=== PATIENT | female | born 1950 | race Caucasian/White ===

== ENCOUNTER → 2018-10-19 13:25 | Outpatient (CLI) | payer MEDICARE, BC, SELFPAY ==
--- NOTE | 2018-10-19 13:28 | DI.RAD.S_ITS ---
PROCEDURE: XR WRIST RT MIN 3V INDICATIONS: Right Wrist pain TECHNIQUE: 4 views of the wrist were acquired. COMPARISON: None. FINDINGS: Bones: No fractures or dislocations. No suspicious bony lesions. Scaphoid view: Scaphoid appears intact. Soft tissues: No suspicious soft tissue calcifications. IMPRESSION: No fracture or dislocation. If clinical symptoms persist or clinical suspicion for pathology is high, advanced imaging such as CT or MRI is suggested for further evaluation. Dictated by: Jennifer Polanco M.D. on 10/19/2018 at 14:38 Approved by: Jennifer Polanco M.D. on 10/19/2018 at 14:40
== END ==
PROVIDERS: Family Provider Family Medicine; PCP Family Medicine; Visit Provider Physician Assistant
DX: M25.531 Pain in right wrist (principal)
CPT/HCPCS: 73110

== ENCOUNTER → 2019-06-16 08:50 | Outpatient (CLI) | payer MEDICARE, BC, SELFPAY ==
[2019-06-16 09:53] LABS: Alanine Aminotransferase 13 IU/L (<35); Albumin 4.4 g/dL (3.5-5.0); Albumin Globulin Ratio 1.5 (1.0-2.8); Alkaline Phosphatase 56 U/L (38-126); Aspartate Aminotransferase 30 IU/L (14-36); Bilirubin Total 0.4 mg/dL (0.2-1.3); Blood Urea Nitrogen 18 mg/dL (7-17); Calcium 9.7 mg/dL (8.4-10.2); Carbon Dioxide 29 mmol/L (22-32); Chloride 102 mmol/L (98-107); Cholesterol 231 mg/dL (140-199); Estimated Glomerular Filt Rate > 60.0 mL/min (>60); Glucose 96 mg/dL (80-110); HDL Cholesterol 71 mg/dL (40-60); HEMOLYSIS < 15 (0-50); LDL Cholesterol Calculated 151 mg/dL (<100); Potassium 4.2 mmol/L (3.4-5.1); Sodium 139 mmol/L (137-145); Total Protein 7.4 g/dL (6.3-8.2); Triglycerides 47 mg/dL (35-150)
[2019-06-16 09:55] LABS: Add Manual Diff / Slide Review NO; Basophils Absolute Auto 0 /uL (0-100); Basophils Percent Auto 1.3 % (0-2); Eosinophils Absolute Auto 200 /uL (0-450); Eosinophils Percent Auto 5.1 % (2-4); Hematocrit 37.8 % (36-46); Hemoglobin 12.8 g/dL (12.0-16.0); Lymphocytes Absolute Auto 1600 /uL (1100-4500); Lymphocytes Percent Auto 44.2 % (25-40); Mean Corpuscular HGB Conc 33.8 % (30-36); Mean Corpuscular Hemoglobin 29.2 PG (26-34); Mean Corpuscular Volume 86.5 fL (80-100); Monocytes Absolute Auto 300 /uL (0-900); Monocytes Percent Auto 8.8 % (3-14); Neutrophils Absolute Auto 1500 /uL (1500-7000); Neutrophils Percent Auto 40.6 % (50-75); Platelet Count 252 X10^3/uL (150-400); Red Blood Cell Count 4.37 X10^6/uL (4.0-5.2); Red Cell Distribution Width 13.7 % (11.6-14.8); White Blood Cell Count 3.6 X10^3/uL (4.5-11.0)
== END ==
PROVIDERS: PCP Family Medicine; Visit Provider Family Medicine
DX: Z00.00 Encounter for general adult medical examination without abnormal findings (principal); Z13.220 Encounter for screening for lipoid disorders; D70.9 Neutropenia, unspecified; E87.1 Hypo-osmolality and hyponatremia; R03.0 Elevated blood-pressure reading, without diagnosis of hypertension
CPT/HCPCS: 36415; 80053; 80061; 85025

== ENCOUNTER → 2019-07-18 11:50 | Outpatient (CLI) | payer MEDICARE, BC, SELFPAY ==
--- NOTE | 2019-07-18 11:51 | DI.MG.S_ITS ---
BILATERAL DIGITAL SCREENING MAMMOGRAM 3D/2D WITH CAD: 07/18/2019 CLINICAL: Routine screening. Family history of breast cancer. Comparison is made to exams dated: 06/12/2016 mammogram - [facility], 10/13/2011 mammogram, and 04/02/2009 mammogram - [facility]. The tissue of both breasts is heterogeneously dense. This may lower the sensitivity of mammography. Current study was also evaluated with a Computer Aided Detection (CAD) system. No significant masses, calcifications, or other findings are seen in either breast. There has been no significant interval change. IMPRESSION: NEGATIVE There is no mammographic evidence of malignancy. A 1 year screening mammogram is recommended. This exam was interpreted at Station ID: [id number]. NOTE: For mammograms, a report in lay terms will be sent to the patient. Approximately 15% of breast malignancies will not be visualized mammographically. In the management of a palpable breast mass, a negative mammogram must not discourage biopsy of a clinically suspicious lesion. Electronically Signed By: Venus sewell/jose:07/18/2019 13:23:59 letter sent: Normal Exam ACR BI-RADS Category 1: Negative 3341F
== END ==
PROVIDERS: PCP Family Medicine; Visit Provider Family Medicine
DX: Z12.31 Encounter for screening mammogram for malignant neoplasm of breast (principal); Z80.3 Family history of malignant neoplasm of breast; M81.0 Age-related osteoporosis without current pathological fracture; Z78.0 Asymptomatic menopausal state; Z87.39 Personal history of other diseases of the musculoskeletal system and connective tissue
CPT/HCPCS: 77063; 77067; 77080

== ENCOUNTER → 2020-08-24 14:07 | Outpatient (CLI) | payer MEDICARE, BC, SELFPAY ==
[2020-08-24] MEDS: COVID-19 VACC #1, MRNA(MOD) 100 MCG/0.5 ML VIAL IM (14:20)
== END ==
PROVIDERS: PCP Family Medicine; Visit Provider Internal Medicine
DX: Z23 Encounter for immunization (principal)
CPT/HCPCS: 0011A; 91301

== ENCOUNTER → 2020-09-21 14:25 | Outpatient (CLI) | payer MEDICARE, BC, SELFPAY ==
[2020-09-21] MEDS: COVID-19 VACC #2, MRNA(MOD) 100 MCG/0.5 ML VIAL IM (14:31)
== END ==
PROVIDERS: PCP Family Medicine; Visit Provider Internal Medicine
DX: Z23 Encounter for immunization (principal)
CPT/HCPCS: 0012A; 91301

== ENCOUNTER 2020-12-29 19:04 | Emergency (ER) | payer MEDICARE, BC, SELFPAY ==
[2020-12-29] VITALS (21 sets, daily range): BP systolic 156–213; BP diastolic 79–107; PULSE 64–83; RESP 13–35; TEMP 36.6; O2SAT 96–99; BMI 20.1
[2020-12-29 19:43] LABS: Add Manual Diff / Slide Review NO; Basophils Absolute Auto 100 /uL (0-100); Basophils Percent Auto 1.2 % (0-2); Eosinophils Absolute Auto 100 /uL (0-450); Eosinophils Percent Auto 1.6 % (2-4); Hematocrit 36.9 % (36-46); Hemoglobin 12.3 g/dL (12.0-16.0); Lymphocytes Absolute Auto 2000 /uL (1100-4500); Mean Corpuscular HGB Conc 33.3 % (30-36); Mean Corpuscular Hemoglobin 28.8 PG (26-34); Mean Corpuscular Volume 86.6 fL (80-100); Monocytes Absolute Auto 500 /uL (0-900); Monocytes Percent Auto 8.9 % (3-14); Neutrophils Absolute Auto 3400 /uL (1500-7000); Neutrophils Percent Auto 56.3 % (50-75); Platelet Count 262 X10^3/uL (150-400); Red Blood Cell Count 4.26 X10^6/uL (4.0-5.2); Red Cell Distribution Width 13.1 % (11.6-14.8); White Blood Cell Count 6.1 X10^3/uL (4.5-11.0)
[2020-12-29 20:04] LABS: Alanine Aminotransferase 15 IU/L (<35); Albumin 4.4 g/dL (3.5-5.0); Albumin Globulin Ratio 1.3 (1.0-2.8); Alkaline Phosphatase 61 U/L (38-126); Aspartate Aminotransferase 31 IU/L (14-36); BUN Creatinine Ratio 28.4 (6-22); Bilirubin Total 0.3 mg/dL (0.2-1.3); Blood Urea Nitrogen 19 mg/dL (7-17); Calcium 9.7 mg/dL (8.4-10.2); Carbon Dioxide 23 mmol/L (22-32); Chloride 98 mmol/L (98-107); Estimated Glomerular Filt Rate > 60.0 mL/min (>60); Globulin 3.3 g/dL (1.7-4.1); Glucose 120 mg/dL (80-110); HEMOLYSIS 21 (0-50); Sodium 129 mmol/L (137-145); Total Protein 7.7 g/dL (6.3-8.2)
--- NOTE | 2020-12-29 20:12 | ED_ITS ---
HPI - General Adult General Chief complaint: Hypertension Stated complaint: HIGH BLOOD PRESSURE Time Seen by Provider: 12/29/20 19:58 Source: patient and family Mode of arrival: Ambulatory Limitations: no limitations History of Present Illness HPI narrative: Patient here with . Evaluation for high blood pressure. Seen by primary care Dr. Inge Urban 2 years ago blood pressure 130 systolic. Has history of hypercholesteremia. A month ago was at dentist's office blood pressure 150 systolic. Patient at dermatology office today and [place] and noted blood pressure ranging between 170-200 systolic foot. Patient denies denies any chest pain headache numbness tingling or weakness. No nausea vomiting or vision changes. Currently not on any blood pressure medication. Patient was referred to family doctor office today from the dermatology office. However the primary office and unable to see patient today. Has appointment tomorrow. Blood pressure noted here in triage as well as in her room. Has improved. Denies any recent illness Related Data Home Medications Medication Instructions Recorded Confirmed [probiotic] #0 01/29/17 06/12/19 cholecalciferol (vitamin D3) 2,500 unit PO #0 01/29/17 06/12/19 [Vitamin D3] hydrocortisone [Ala-Malcom] 1 beverly TP #0 01/29/17 06/12/19 hydrocortisone [Proctozone-HC] [address] #0 01/29/17 06/12/19 ibuprofen [Advil Liqui-Gel] 200 mg PO #0 01/29/17 06/12/19 multivitamin [Multiple Vitamins] 1 tab PO QDAY #0 01/29/17 06/12/19 omega 2-ecu-nsw-fish oil [Fish Oil] 1,000 mg PO #0 01/29/17 06/12/19 Previous Rx's Medication Instructions Recorded lisinopril 5 mg PO DAILY #14 tab 12/29/20 Allergies Allergy/AdvReac Type Severity Reaction Status Date / Time No Known Drug Allergies Allergy Verified 12/29/20 19:05 Review of Systems Review of Systems Narrative: GENERAL: Denies chills, fatigue, malaise, fever, sweats. HEENT: Denies sinus pain, ear pain, sore throat RESPIRATORY: Denies dyspnea, cough CARDIOVASCULAR: Denies chest pain, palpitations GASTROINTESTINAL: Denies nausea, vomiting, abdominal pain : Denies dysuria, frequency, hematuria MUSCULOSKELETAL: denies muscle or bony pain SKIN: Denies rash, skin lesions NEUROLOGIC: Denies weakness, numbness ROS Unobtainable: All systems reviewed & are unremarkable except as noted in HPI and below Patient History Medical History (Updated 12/29/20 @ 20:15 by Ronaldo Huber MD) Osteoporosis Surgical History Status post ovarian cystectomy Social History Smoking Status: Unknown if ever smoked alcohol intake: current substance use type: does not use Smoking Status: Unknown if ever smoked alcohol intake frequency: a few times a week Substance Use Type: does not use Exam Narrative Exam Narrative: GENERAL: in no distress, not toxic not dyspneic HEAD: Normocephalic. EYES: Pupils equal round No scleral icterus. No injection no discharge ENT: Mucous membranes moist. NECK: Trachea midline. CARDIOVASCULAR: Regular rate and rhythm without murmurs RESPIRATORY: Clear to auscultation. Breath sounds equal bilaterally. No wheezes, rales, or rhonchi. GASTROINTESTINAL: Abdomen soft, non-tender EXTREMITIES: No gross deformities. BACK: No flank tenderness. NEURO: AOx4. SKIN: Warm and dry PSYCH: Not anxious, is cooperative Initial Vital Signs Initial Vital Signs: Vital Signs Temperature 97.9 F 12/29/20 19:04 Pulse Rate 83 12/29/20 19:04 Respiratory Rate 15 12/29/20 19:04 Blood Pressure 204/93 H 12/29/20 19:04 Pulse Oximetry 98 12/29/20 19:04 Course Course Course Narrative: No new issues during course of stay Orders Ordered: ED Orders 12/29/20 19:22 EKG-12 Lead Stat 12/29/20 19:36 Complete Blood Count AUTO DIFF Stat Comprehensive Metabolic Panel Stat Troponin & CK Cardiac Panel Stat Discontinued Medications Lisinopril (Lisinopril 5 Mg Tablet) 5 mg PO NOW ONE Stop: 12/29/20 20:29 Last Admin: 12/29/20 20:52 Dose: 5 mg Documented by: LEONARDA Lisinopril (Lisinopril 5 Mg Tablet) 5 mg PO NOW ONE Stop: 12/29/20 21:51 Last Admin: 12/29/20 21:59 Dose: 5 mg Documented by: LEONARDA Lisinopril (Lisinopril 5 Mg Tablet) 5 mg PO NOW ONE Stop: 12/29/20 22:00 Last Admin: 12/29/20 22:02 Dose: Not Given Documented by: LEONARDA Reevaluation(s) Reevaluation #1: Blood pressure 158/83 heart rate 75. Continues no complaints. She desires discharge home Time: 22:47 Consultations Consultation #1: Spoke with primary care button maker and installer, Dr. Cano, advises start lisinopril 5 mg daily. Time: 20:29 Vital Signs Vital signs: Vital Signs - 8 hr 12/29/20 19:41 12/29/20 19:42 12/29/20 19:45 Pulse Rate 79 77 73 Respiratory Rate 26 H 22 24 Blood Pressure 197/95 H 191/97 H Pulse Oximetry 97 98 97 12/29/20 20:00 12/29/20 20:15 12/29/20 20:30 Pulse Rate 68 70 66 Respiratory Rate 15 26 H 19 Blood Pressure 173/87 H 185/95 H 173/92 H Pulse Oximetry 97 97 97 12/29/20 20:45 12/29/20 20:52 12/29/20 21:00 Pulse Rate 65 65 64 Respiratory Rate 23 30 H Blood Pressure 156/79 H 156/79 H 203/93 H Pulse Oximetry 97 98 12/29/20 21:02 12/29/20 21:04 12/29/20 21:05 Pulse Rate 76 74 72 Respiratory Rate 30 H 24 35 H Blood Pressure 207/106 H 213/107 H 207/100 H Pulse Oximetry 98 98 98 12/29/20 21:15 12/29/20 21:30 12/29/20 21:45 Pulse Rate 70 70 75 Respiratory Rate 22 17 17 Blood Pressure 197/97 H 192/99 H 187/96 H Pulse Oximetry 98 97 97 12/29/20 21:59 12/29/20 22:00 12/29/20 22:15 Pulse Rate 74 76 70 Respiratory Rate 28 H 13 Blood Pressure 187/96 H 188/96 H 166/85 H Pulse Oximetry 99 98 12/29/20 22:30 12/29/20 22:45 Pulse Rate 72 74 Respiratory Rate 13 28 H Blood Pressure 162/79 H 158/83 H Pulse Oximetry 97 96 Medical Decision Making Differential Diagnosis Differential Diagnosis: Essential hypertension, incidental finding Medical Records Medical records reviewed: Yes I reviewed the patient's medical records. Lab Data Lab results reviewed: Yes I reviewed the patient's lab results. Result diagrams: 12/29/20 19:36 12/29/20 19:36 Labs: Lab Results 12/29/20 12/29/20 12/29/20 Range/Units 19:36 19:36 19:36 WBC 6.1 (4.5-11.0) X10^3/uL RBC 4.26 (4.0-5.2) X10^6/uL Hgb 12.3 (12.0-16.0) g/dL Hct 36.9 (36-46) % MCV 86.6 (80-100) fL MCH 28.8 (26-34) PG MCHC 33.3 (30-36) % RDW 13.1 (11.6-14.8) % Plt Count 262 (150-400) X10^3/uL Neut % (Auto) 56.3 (50-75) % Lymph % (Auto) 32.0 (25-40) % [place] % (Auto) 8.9 (3-14) % Eos % (Auto) 1.6 L (2-4) % Baso % (Auto) 1.2 (0-2) % Neut # (Auto) 3400 (5048-5238) /uL Lymph # (Auto) 2000 (9711-5696) /uL [place] # (Auto) 500 (0-900) /uL Eos # (Auto) 100 (0-450) /uL Baso # (Auto) 100 (0-100) /uL Sodium 129 L (137-145) mmol/L Potassium 4.0 (3.4-5.1) mmol/L Chloride 98 (98-107) mmol/L Carbon Dioxide 23 (22-32) mmol/L BUN 19 H (7-17) mg/dL Creatinine 0.67 (0.52-1.04) mg/dL Estimated GFR > 60.0 (>60) mL/min BUN/Creatinine Ratio 28.4 H (6-22) Glucose 120 H (80-110) mg/dL Calcium 9.7 (8.4-10.2) mg/dL Total Bilirubin 0.3 (0.2-1.3) mg/dL AST 31 (14-36) IU/L ALT 15 (<35) IU/L Alkaline Phosphatase 61 (38-126) U/L Total Creatine Kinase 70 (30-135) U/L CK-MB (CK-2) TNP CK-MB (CK-2) Rel Index TNP Troponin I 0.029 (0.01-0.034) ng/mL Total Protein 7.7 (6.3-8.2) g/dL Albumin 4.4 (3.5-5.0) g/dL Globulin 3.3 (1.7-4.1) g/dL Albumin/Globulin Ratio 1.3 (1.0-2.8) ECG Data Attestation: I personally reviewed and interpreted this ECG as follows: Interpretation: Normal sinus rhythm rate [address] elevation or depression MDM Narrative Medical decision making narrative: Appropriate for discharge home. Exam and laboratory studies reassuring. Has follow-up with primary care tomorrow. Blood pressure improved with lisinopril. Discharge Plan Departure Patient Disposition: Home Clinical Impression: Hypertension Qualifiers: Hypertension type: unspecified Qualified Code(s): I10 - Essential (primary) hypertension Instructions: DI for High Blood Pressure Activity Restrictions/Additional Instructions: See family doctor as scheduled tomorrow. Return if worse or any questions or concerns. Continue wound instructions/dressing instructions from your provider earlier today. Return if worse or any questions or concerns. Prescription for lisinopril has been sent to your [facility] pharmacy here in [facility]. Prescriptions: New lisinopril 5 mg tablet 5 mg PO DAILY Qty: 14 RF: 0 No Action ibuprofen [Advil Liqui-Gel] 200 MG capsule 200 mg PO Qty: 0 RF: 0 hydrocortisone [Proctozone-HC] 2.5 % cream with perineal applicator [address] Qty: 0 RF: 0 hydrocortisone [Ala-Malcom] 1 % cream 1 beverly TP Qty: 0 RF: 0 cholecalciferol (vitamin D3) [Vitamin D3] 2,000 UNIT capsule 2,500 unit PO Qty: 0 RF: 0 omega 4-acq-pyu-fish oil [Fish Oil] 1,000 MG capsule 1,000 mg PO Qty: 0 RF: 0 multivitamin [Multiple Vitamins] 1 EACH tablet 1 tab PO QDAY Qty: 0 RF: 0 [probiotic] Qty: 0 RF: 0 Referrals: Porsha Velazquez DO [Primary Care Provider] -
[2020-12-29 20:51] LABS: Creatine Kinase 70 U/L (30-135)
[2020-12-29] MEDS: lisinopriL 5 MG TABLET PO ×2 (20:52→21:59)
[2020-12-29 21:04] LABS: Troponin I 0.029 ng/mL (0.01-0.034)
== END 2020-12-29 22:57 | disposition home or self-care (01) ==
PROVIDERS: Emergency Provider Emergency Medicine; PCP Family Medicine
DX: I10 Essential (primary) hypertension (principal)
CPT/HCPCS: 36415; 80053; 82550; 84484; 85025; 93005; 99283; 99284

== ENCOUNTER → 2020-12-30 11:18 | Outpatient (CLI) | payer MEDICARE, BC, SELFPAY ==
[2020-12-30 16:18] LABS: TSH w/ Reflex to FT4 1.97 uIU/mL (0.47-4.68)
[2020-12-30 18:26] LABS: BUN Creatinine Ratio 19.8 (6-22); Blood Urea Nitrogen 16 mg/dL (7-17); Calcium 10.2 mg/dL (8.4-10.2); Carbon Dioxide 27 mmol/L (22-32); Chloride 96 mmol/L (98-107); Estimated Glomerular Filt Rate > 60.0 mL/min (>60); Glucose 97 mg/dL (80-110); HEMOLYSIS < 15 (0-50); Potassium 4.4 mmol/L (3.4-5.1); Sodium 131 mmol/L (137-145)
== END ==
PROVIDERS: PCP Family Medicine; Referring Provider Family Medicine; Visit Provider Family Medicine
DX: E87.1 Hypo-osmolality and hyponatremia (principal); I10 Essential (primary) hypertension
CPT/HCPCS: 36415; 80048; 84443

== ENCOUNTER → 2021-01-03 10:31 | Outpatient (CLI) | payer MEDICARE, BC, SELFPAY ==
[2021-01-03 12:10] LABS: Collection Time Urine 24 Hours; Creatinine 24 Hour Urine 902 mg/day (800-1800); Creatinine Urine Random 32.8 mg/dL; Total Volume Urine 2750 mL
[2021-01-07 19:01] LABS: Creatinine, 24 Urine 828 mg/24 hr (800-1800); Creatinine,Urine 30.1 mg/dL (Not Estab.); Dopamine, Ur 24hr 151 ug/24 hr (0-510); Epinephrine, U 24hr 8 ug/24 hr (0-20); Norepinephrine Ur 24hr 69 ug/24 hr (0-135)
[2021-01-07 23:38] LABS: Normetanephrine Total 300 ug/24 hr (131-612); Urine, Metanephrine 44 ug/L (Undefined); Urine, Normetanephrine 109 ug/L (Undefined)
[2021-01-08 11:39] LABS: 5-HIAA, UR 24HR 6.3 mg/24 hr (0.0-14.9); 5-HIAA, Urine 2.3 mg/L (Undefined)
== END ==
PROVIDERS: PCP Family Medicine; Referring Provider Family Medicine; Visit Provider Family Medicine
DX: I10 Essential (primary) hypertension (principal)
CPT/HCPCS: 82384; 82570; 83497; 83835

== ENCOUNTER → 2021-01-05 11:56 | Outpatient (CLI) | payer MEDICARE, BC, SELFPAY ==
[2021-01-05 13:15] LABS: BUN Creatinine Ratio 19.2 (6-22); Blood Urea Nitrogen 14 mg/dL (7-17); Calcium 9.7 mg/dL (8.4-10.2); Carbon Dioxide 27 mmol/L (22-32); Chloride 90 mmol/L (98-107); Estimated Glomerular Filt Rate > 60.0 mL/min (>60); Glucose 102 mg/dL (80-110); HEMOLYSIS < 15 (0-50); Potassium 4.8 mmol/L (3.4-5.1); Sodium 124 mmol/L (137-145)
== END ==
PROVIDERS: PCP Family Medicine; Referring Provider Family Medicine; Visit Provider Family Medicine
DX: E87.1 Hypo-osmolality and hyponatremia (principal)
CPT/HCPCS: 36415; 80048

== ENCOUNTER → 2021-01-06 15:43 | Outpatient (CLI) | payer MEDICARE, BC, SELFPAY ==
[2021-01-06 16:51] LABS: BUN Creatinine Ratio 19.4 (6-22); Blood Urea Nitrogen 13 mg/dL (7-17); Calcium 9.5 mg/dL (8.4-10.2); Carbon Dioxide 29 mmol/L (22-32); Chloride 88 mmol/L (98-107); Estimated Glomerular Filt Rate > 60.0 mL/min (>60); Glucose 93 mg/dL (80-110); HEMOLYSIS < 15 (0-50); Potassium 4.6 mmol/L (3.4-5.1); Sodium 123 mmol/L (137-145)
[2021-01-06 18:23] LABS: Sodium Urine Random 22 mmol/L (30-90)
[2021-01-07 13:40] LABS: Osmolality Urine 155 mOsmol/kg (.); Osmolality, Serum 259 mOsmol/kg (280-301)
== END ==
PROVIDERS: PCP Family Medicine; Referring Provider Family Medicine; Visit Provider Family Medicine
DX: E87.1 Hypo-osmolality and hyponatremia (principal)
CPT/HCPCS: 36415; 80048; 83930; 83935; 84300

== ENCOUNTER → 2021-01-10 10:20 | Outpatient (CLI) | payer MEDICARE, BC, SELFPAY ==
[2021-01-10 11:45] LABS: BUN Creatinine Ratio 19.2 (6-22); Blood Urea Nitrogen 14 mg/dL (7-17); Calcium 9.7 mg/dL (8.4-10.2); Carbon Dioxide 28 mmol/L (22-32); Chloride 97 mmol/L (98-107); Estimated Glomerular Filt Rate > 60.0 mL/min (>60); Glucose 79 mg/dL (80-110); HEMOLYSIS < 15 (0-50); Sodium 132 mmol/L (137-145)
== END ==
PROVIDERS: PCP Family Medicine; Referring Provider Family Medicine; Visit Provider Family Medicine
DX: E87.1 Hypo-osmolality and hyponatremia (principal)
CPT/HCPCS: 36415; 80048

== ENCOUNTER → 2022-05-06 13:19 | Outpatient (CLI) | payer MEDICARE, BC, SELFPAY ==
--- NOTE | 2022-05-06 13:20 | DI.MG.S_ITS ---
BILATERAL DIGITAL SCREENING MAMMOGRAM 3D/2D WITH CAD: 05/06/2022 CLINICAL: Routine screening. Family history of breast cancer. Comparison is made to exams dated: 07/18/2019 mammogram, 06/12/[address] - [facility], and 10/13/2011 mammogram - [facility]. Both breasts are heterogeneously dense, which may obscure small masses (category c / 51-75% glandular tissue). Current study was also evaluated with a Computer Aided Detection (CAD) system. No significant masses, calcifications, or other findings are seen in either breast. There has been no significant interval change. IMPRESSION: NEGATIVE There is no mammographic evidence of malignancy. A 1 year screening mammogram is recommended. Based on the Tyrer Cuzick model (a risk assessment model) the patient's lifetime risk is 7.8% and her 10 year risk is 5.4%. According to the ACR, ACS, and NCCN guidelines, an annual breast MRI exam along with mammogram is recommended if the patient's lifetime risk is 20% or greater. This exam was interpreted at Station ID: [id number]. NOTE: For mammograms, a report in lay terms will be sent to the patient. Approximately 15% of breast malignancies will not be visualized mammographically. In the management of a palpable breast mass, a negative mammogram must not discourage biopsy of a clinically suspicious lesion. Electronically Signed By: Talat dillon/jose:05/08/2022 08:44:29 letter sent: Normal Exam ACR BI-RADS Category 1: Negative 3341F
== END ==
PROVIDERS: PCP Family Medicine; Referring Provider Family Medicine; Visit Provider Family Medicine
DX: Z12.31 Encounter for screening mammogram for malignant neoplasm of breast (principal); Z80.3 Family history of malignant neoplasm of breast
CPT/HCPCS: 77063; 77067

== ENCOUNTER → 2022-10-03 10:03 | Outpatient (CLI) | payer MEDICARE, BC, SELFPAY ==
--- NOTE | 2022-10-03 10:06 | DI.RAD.S_ITS ---
PROCEDURE: XR ABDOMEN MIN 2V INDICATIONS: Constipation; lower abdominal pressure/pain (LLQ) TECHNIQUE: 2 views of the abdomen were acquired. COMPARISON: None. FINDINGS: Large amount of stool present throughout the colon. No pathologically dilated gas-filled loops of bowel. No evidence of pneumoperitoneum. IMPRESSION: Large amount of stool present within the colon. Dictated by: Castro Stock M.D. on 10/03/2022 at 20:57 Approved by: Castro Stock M.D. on 10/03/2022 at 20:59
[2022-10-03 11:29] LABS: Add Manual Diff / Slide Review NO; Basophils Absolute Auto 0 /uL (0-100); Basophils Percent Auto 0.3 % (0-2); Eosinophils Absolute Auto 100 /uL (0-450); Lymphocytes Absolute Auto 1300 /uL (1100-4500); Lymphocytes Percent Auto 19.8 % (25-40); Mean Corpuscular HGB Conc 33.3 % (30-36); Mean Corpuscular Hemoglobin 28.4 PG (26-34); Mean Corpuscular Volume 85.2 fL (80-100); Monocytes Absolute Auto 600 /uL (0-900); Monocytes Percent Auto 9.4 % (3-14); Neutrophils Absolute Auto 4700 /uL (1500-7000); Neutrophils Percent Auto 69.5 % (50-75); Platelet Count 341 X10^3/uL (150-400); Red Blood Cell Count 4.22 X10^6/uL (4.0-5.2); Red Cell Distribution Width 13.5 % (11.6-14.8); White Blood Cell Count 6.7 X10^3/uL (4.5-11.0)
== END ==
PROVIDERS: PCP Family Medicine; Referring Provider Physician Assistant; Visit Provider Physician Assistant
DX: K59.00 Constipation, unspecified (principal); R10.32 Left lower quadrant pain
CPT/HCPCS: 36415; 74019; 85025

== ENCOUNTER → 2023-05-16 14:01 | Outpatient (CLI) | payer MEDICARE, BC, SELFPAY ==
[2023-05-16 14:33] LABS: Add Manual Diff / Slide Review NO; Basophils Absolute Auto 0 /uL (0-100); Basophils Percent Auto 0.5 % (0-2); Eosinophils Absolute Auto 100 /uL (0-450); Eosinophils Percent Auto 1.3 % (2-4); Hematocrit 37.4 % (36-46); Hemoglobin 12.7 g/dL (12.0-16.0); Lymphocytes Absolute Auto 2200 /uL (1100-4500); Lymphocytes Percent Auto 30.8 % (25-40); Mean Corpuscular HGB Conc 33.9 % (30-36); Mean Corpuscular Hemoglobin 29.3 PG (26-34); Mean Corpuscular Volume 86.4 fL (80-100); Monocytes Absolute Auto 500 /uL (0-900); Monocytes Percent Auto 7.3 % (3-14); Neutrophils Absolute Auto 4300 /uL (1500-7000); Neutrophils Percent Auto 60.1 % (50-75); Platelet Count 295 X10^3/uL (150-400); Red Blood Cell Count 4.32 X10^6/uL (4.0-5.2); Red Cell Distribution Width 13.5 % (11.6-14.8); White Blood Cell Count 7.1 X10^3/uL (4.5-11.0)
[2023-05-16 15:10] LABS: Alanine Aminotransferase 14 IU/L (<35); Albumin 4.3 g/dL (3.5-5.0); Albumin Globulin Ratio 1.4 (1.0-2.8); Alkaline Phosphatase 52 U/L (38-126); Aspartate Aminotransferase 26 IU/L (14-36); BUN Creatinine Ratio 23.3 (6-22); Bilirubin Total 0.1 mg/dL (0.2-1.3); Blood Urea Nitrogen 21 mg/dL (7-17); Calcium 10.2 mg/dL (8.4-10.2); Carbon Dioxide 30 mmol/L (22-32); Chloride 99 mmol/L (98-107); Estimated Glomerular Filt Rate > 60 mL/min (>60); Globulin 3.1 g/dL (1.7-4.1); Glucose 99 mg/dL (80-110); HEMOLYSIS < 15 (0-50); Potassium 4.6 mmol/L (3.4-5.1); Sodium 135 mmol/L (137-145); Total Protein 7.4 g/dL (6.3-8.2)
[2023-05-16 15:40] LABS: TSH w/ Reflex to FT4 2.07 uIU/mL (0.47-4.68)
[2023-05-16 19:10] LABS: Creatinine Urine Random 57.5 mg/dL
[2023-05-16 19:21] LABS: Microalbumin Urine Random < 0.6 mg/dL (0-1.6)
== END ==
PROVIDERS: PCP Internal Medicine; Referring Provider Physician Assistant; Visit Provider Physician Assistant
DX: Z86.79 Personal history of other diseases of the circulatory system; R03.0 Elevated blood-pressure reading, without diagnosis of hypertension; R23.2 Flushing
CPT/HCPCS: 36415; 80053; 82043; 82570; 84443; 85025

== ENCOUNTER → 2023-06-08 08:08 | Outpatient (CLI) | payer MEDICARE, BC, SELFPAY ==
[2023-06-08 09:24] LABS: Cholesterol 207 mg/dL (140-199); HDL Cholesterol 82 mg/dL (40-60); LDL Cholesterol Calculated 111 mg/dL (<100); Triglycerides 72 mg/dL (35-150)
== END ==
PROVIDERS: PCP Internal Medicine; Referring Provider Physician Assistant; Visit Provider Physician Assistant
DX: Z13.6 Encounter for screening for cardiovascular disorders (principal); Z86.79 Personal history of other diseases of the circulatory system; Z13.220 Encounter for screening for lipoid disorders
CPT/HCPCS: 36415; 80061

== ENCOUNTER 2023-07-13 09:32 | Emergency (ER) | payer MEDICARE, BC, SELFPAY ==
[2023-07-13 09:41] VITALS: PULSE 87; O2SAT 99
[2023-07-13 09:53] VITALS: BP 154/71; PULSE 90; RESP 18; TEMP 36.5; O2SAT 99; BMI 20.1
[2023-07-13 10:00] VITALS: BP 139/67; PULSE 78; O2SAT 99
[2023-07-13 10:20] LABS: Add Manual Diff / Slide Review NO; Basophils Absolute Auto 0 /uL (0-100); Basophils Percent Auto 0.5 % (0-2); Eosinophils Absolute Auto 0 /uL (0-450); Eosinophils Percent Auto 0.3 % (2-4); Hematocrit 37.3 % (36-46); Hemoglobin 12.6 g/dL (12.0-16.0); Lymphocytes Absolute Auto 900 /uL (1100-4500); Lymphocytes Percent Auto 11.4 % (25-40); Mean Corpuscular HGB Conc 33.7 % (30-36); Mean Corpuscular Hemoglobin 28.7 PG (26-34); Mean Corpuscular Volume 85.2 fL (80-100); Monocytes Absolute Auto 500 /uL (0-900); Monocytes Percent Auto 6.6 % (3-14); Neutrophils Absolute Auto 6500 /uL (1500-7000); Neutrophils Percent Auto 81.2 % (50-75); Platelet Count 312 X10^3/uL (150-400); Red Blood Cell Count 4.38 X10^6/uL (4.0-5.2); Red Cell Distribution Width 13.1 % (11.6-14.8)
[2023-07-13] MEDS: SODIUM CHLORIDE 0.9% 1,000 ML 1000 ML IV (10:26)
[2023-07-13 10:30] VITALS: PULSE 81; O2SAT 99
[2023-07-13 10:31] VITALS: BP 158/71; PULSE 81; O2SAT 100
[2023-07-13 10:38] LABS: Alanine Aminotransferase 17 IU/L (<35); Albumin 4.3 g/dL (3.5-5.0); Albumin Globulin Ratio 1.1 (1.0-2.8); Alkaline Phosphatase 50 U/L (38-126); Aspartate Aminotransferase 30 IU/L (14-36); Bilirubin Total 0.7 mg/dL (0.2-1.3); Blood Urea Nitrogen 20 mg/dL (7-17); Carbon Dioxide 28 mmol/L (22-32); Chloride 99 mmol/L (98-107); Estimated Glomerular Filt Rate > 60 mL/min (>60); Globulin 3.8 g/dL (1.7-4.1); Glucose 119 mg/dL (80-110); HEMOLYSIS < 15 (0-50); Lipase 67 U/L (23-300); Potassium 4.3 mmol/L (3.4-5.1); Sodium 135 mmol/L (137-145); Total Protein 8.1 g/dL (6.3-8.2)
--- NOTE | 2023-07-13 10:41 | ED_ITS ---
HPI - Nausea/Vomiting/Diarrhea General Chief complaint: Nausea/Vomiting/Diarrhea Stated complaint: food poisoning Time Seen by Provider: 07/13/23 09:53 Source: patient Mode of arrival: Ambulatory History of Present Illness HPI Narrative: Patient is a 73-year-old female with history of psoriasis presenting today with nausea vomiting diarrhea. She reports that last night she would multiple episodes of vomiting and diarrhea. This morning she woke up and had some bright-red blood mixed with stool and some blood the toilet paper when she wiped. She is having mild abdominal cramping no nausea or vomiting this morning. Has had decreased appetite. She thinks she might have eaten some bad ice cream last night. No fever or chills no dizziness or lightheadedness. She reports that she previously had a colonoscopy. I have record of it from February 13. 2 polyps were found she says she does not need another 1 for the next 5 years Related Data Home Medications Medication Instructions Recorded Confirmed [probiotic] ##0 01/29/17 05/30/23 cholecalciferol (vitamin D3) 50 2,500 unit PO ##0 01/29/17 05/30/23 mcg (2,000 unit) capsule (Vitamin D3) hydrocortisone 1 % topical cream 1 beverly TP ##0 01/29/17 05/30/23 (Ala-Malcom) ibuprofen 200 mg capsule (Advil 200 mg PO ##0 01/29/17 05/30/23 Liqui-Gel) multivitamin (Multiple Vitamins 1 tab PO QDAY ##0 01/29/17 05/30/23 tablet) omega 7-rrf-lus-fish oil 1,000 mg 1,000 mg PO ##0 01/29/17 05/30/23 (120 mg-180 mg) capsule (Fish Oil) Previous Rx's Medication Instructions Recorded ondansetron 4 mg disintegrating 4 mg PO Q8H PRN nausea and 07/13/23 tablet vomiting #10 tabs Allergies Allergy/AdvReac Type Severity Reaction Status Date / Time No Known Drug Allergies Allergy Verified 05/15/23 16:19 Patient History Medical History (Updated 07/13/23 @ 11:04 by Myah Mckeon DO) Osteoporosis Surgical History Status post ovarian cystectomy Social History Smoking Status: Never smoker alcohol intake: current substance use type: does not use Smoking Status: Never smoker alcohol intake frequency: a few times a week Substance Use Type: does not use Exam Initial Vital Signs Initial Vital Signs: Vital Signs Pulse Rate 87 07/13/23 09:41 Pulse Oximetry 99 07/13/23 09:41 GENERAL: Alert pleasant 73-year-old female and in no acute distress. HEENT: Head atraumatic,EOMI, pupils reactive, face symmetric, moist mucous membranes CARDIOVASCULAR: Regular rate and rhythm without murmurs, rubs or gallops. RESPIRATORY: Breath sounds equal bilaterally, no wheezes rales or rhonchi. ABDOMEN: Soft, nontender. Normoactive bowel sounds all 4 quadrants. No guarding or rebound. EXTREMITIES: Normal range of motion, no clubbing or edema. Neurovascularly intact NEUROLOGICAL: Alert and oriented x4.Normal gait and speech. SKIN: Warm, dry, no laceration, no petechiae, no rashes or lesions. Course Orders Ordered: ED Orders 07/13/23 10:00 Complete Blood Count AUTO DIFF Stat Comprehensive Metabolic Panel Stat Lipase Stat Discontinued Medications Sodium Chloride (Normal Saline 0.9%) 1,000 mls @ 1,000 mls/hr IV BOLUS ONE Stop: 07/13/23 11:11 Last Infusion: 07/13/23 11:06 Dose: Infused Documented By: Admin: 07/13/23 10:26 Dose: 1,000 mls/hr Documented By: ZINO Ondansetron HCl (Ondansetron 4 Mg/2 Ml Inj) 4 mg IV NOW ONE Stop: 07/13/23 10:13 Vital Signs Vital signs: Vital Signs - 8 hr 07/13/23 09:41 07/13/23 09:53 07/13/23 10:00 Temperature 97.7 F Pulse Rate 87 90 78 Respiratory Rate 18 Blood Pressure 154/71 H Pulse Oximetry 99 99 99 Oxygen Delivery Method Room Air 07/13/23 10:00 07/13/23 10:30 07/13/23 10:31 Temperature Pulse Rate 81 Respiratory Rate Blood Pressure 139/67 158/71 H Pulse Oximetry 99 Oxygen Delivery Method 07/13/23 10:31 07/13/23 11:01 07/13/23 11:01 Temperature Pulse Rate 81 78 Respiratory Rate Blood Pressure 175/72 H Pulse Oximetry 100 98 Oxygen Delivery Method MDM - Nausea/Vomiting/Diarrhea Lab Data 07/13/23 10:00 07/13/23 10:00 Labs: Lab Results 07/13/23 Range/Units 10:00 WBC 8.0 (4.5-11.0) X10^3/uL RBC 4.38 (4.0-5.2) X10^6/uL Hgb 12.6 (12.0-16.0) g/dL Hct 37.3 (36-46) % MCV 85.2 (80-100) fL MCH 28.7 (26-34) PG MCHC 33.7 (30-36) % RDW 13.1 (11.6-14.8) % Plt Count 312 (150-400) X10^3/uL Neut % (Auto) 81.2 H (50-75) % Lymph % (Auto) 11.4 L (25-40) % [place] % (Auto) 6.6 (3-14) % Eos % (Auto) 0.3 L (2-4) % Baso % (Auto) 0.5 (0-2) % Neut # (Auto) 6500 (4859-2800) /uL Lymph # (Auto) 900 L (7398-4123) /uL [place] # (Auto) 500 (0-900) /uL Eos # (Auto) 0 (0-450) /uL Baso # (Auto) 0 (0-100) /uL Sodium 135 L (137-145) mmol/L Potassium 4.3 (3.4-5.1) mmol/L Chloride 99 (98-107) mmol/L Carbon Dioxide 28 (22-32) mmol/L BUN 20 H (7-17) mg/dL Creatinine 0.77 (0.52-1.04) mg/dL Estimated GFR > 60 (>60) mL/min BUN/Creatinine Ratio 26.0 H (6-22) Glucose 119 H (80-110) mg/dL Calcium 10.0 (8.4-10.2) mg/dL Total Bilirubin 0.7 (0.2-1.3) mg/dL AST 30 (14-36) IU/L ALT 17 (<35) IU/L Alkaline Phosphatase 50 (38-126) U/L Total Protein 8.1 (6.3-8.2) g/dL Albumin 4.3 (3.5-5.0) g/dL Globulin 3.8 (1.7-4.1) g/dL Albumin/Globulin Ratio 1.1 (1.0-2.8) Lipase 67 (23-300) U/L MDM Narrative Medical decision making narrative: Patient well-appearing 73-year-old female who had nausea vomiting diarrhea for less than 4 hours. Vomiting has stopped she is now tolerating p.o. fluids. Blood work been reviewed no leukocytosis or anemia. No electrolyte abnormality or MAYURI blood work is similar to previous April 2023. She does have some blood mixed in stool which is consistent with a gastroenteritis. Abdomen is soft nontender. I see no need for imaging at this time. We discussed oral rehydration as needed. She would a recent colonoscopy with polyps that have been removed. Do not suspect other etiologies such as time. Discharge Plan Departure Patient Disposition: Home Clinical Impression: Gastroenteritis Instructions: DI for Viral Gastroenteritis -- Adult Activity Restrictions/Additional Instructions: *You have been diagnosed with gastroenteritis *What to do: At this time you likely have a virus. Please stay hydrated with Gatorade or Gatorade like substance avoid red colored products. May advance diet as tolerated. *Continue to take medications as directed Zofran 4 mg every 8 hours if needed for nausea or vomiting Tylenol or Motrin/Advil as needed *Follow up with your primary care provider in 2-3 days or call [phone] *Return to ER if you should have persistent vomiting and diarrhea multiple episodes of bloody stool dizziness lightheadedness worsening abdominal pain or any new, worsening or concerning symptoms Prescriptions: New ondansetron 4 mg tablet,disintegrating 4 mg PO Q8H PRN (Reason: nausea and vomiting) Qty: 10 0RF No Action ibuprofen [Advil Liqui-Gel] 200 MG capsule 200 mg PO Qty: 0 hydrocortisone [Ala-Malcom] 1 % cream 1 beverly TP Qty: 0 cholecalciferol (vitamin D3) [Vitamin D3] 2,000 UNIT capsule 2,500 unit PO Qty: 0 omega 8-kcu-kjn-fish oil [Fish Oil] 1,000 MG capsule 1,000 mg PO Qty: 0 multivitamin [Multiple Vitamins] 1 EACH tablet 1 tab PO QDAY Qty: 0 [probiotic] Qty: 0 Referrals: Ashish Lovelace MD [Primary Care Provider] - Stand Alone Forms: Patient Portal/API
[2023-07-13 11:01] VITALS: BP 175/72; PULSE 78; O2SAT 98
== END 2023-07-13 11:15 | disposition home or self-care (01) ==
PROVIDERS: Emergency Provider Emergency Medicine; PCP Internal Medicine
DX: K52.9 Noninfective gastroenteritis and colitis, unspecified (principal); R10.9 Unspecified abdominal pain
CPT/HCPCS: 36415; 80053; 83690; 85025; 96360; 99284

== ENCOUNTER → 2023-08-14 16:13 | Outpatient (CLI) | payer MEDICARE, BC, SELFPAY ==
--- NOTE | 2023-08-14 | DI.MG.S_ITS ---
BILATERAL DIGITAL SCREENING MAMMOGRAM 3D/2D WITH CAD: 08/14/2023 CLINICAL: Routine screening. Family history of breast cancer. Comparison is made to exams dated: 05/06/2022 mammogram, 07/18/2019 mammogram, and 06/12/2016 mammogram - [facility]. Both breasts are heterogeneously dense, which may obscure small masses (category c / 51-75% glandular tissue). Current study was also evaluated with a Computer Aided Detection (CAD) system. No significant masses, calcifications, or other findings are seen in either breast. There has been no significant interval change. IMPRESSION: NEGATIVE There is no mammographic evidence of malignancy. A 1 year screening mammogram is recommended. Based on the Tyrer Cuzick model (a risk assessment model) the patient's lifetime risk is 7.0% and her 10 year risk is 5.8%. According to the ACR, ACS, and NCCN guidelines, an annual breast MRI exam along with mammogram is recommended if the patient's lifetime risk is 20% or greater. This exam was interpreted at Station ID: [id number]. NOTE: For mammograms, a report in lay terms will be sent to the patient. Approximately 15% of breast malignancies will not be visualized mammographically. In the management of a palpable breast mass, a negative mammogram must not discourage biopsy of a clinically suspicious lesion. Electronically Signed By: Lion levy/jose:08/15/2023 11:49:11 letter sent: Normal Exam ACR BI-RADS Category 1: Negative 3341F
== END ==
PROVIDERS: PCP Internal Medicine; Referring Provider Internal Medicine; Visit Provider Internal Medicine
DX: Z12.31 Encounter for screening mammogram for malignant neoplasm of breast (principal); Z80.3 Family history of malignant neoplasm of breast; R92.333 Mammographic heterogeneous density, bilateral breasts
CPT/HCPCS: 77063; 77067

== ENCOUNTER → 2024-05-22 14:16 | Outpatient (CLI) | payer MEDICARE, BC, SELFPAY ==
[2024-05-22 14:58] LABS: Add Manual Diff / Slide Review NO; Basophils Absolute Auto 0 /uL (0-100); Basophils Percent Auto 0.6 % (0-2); Eosinophils Absolute Auto 100 /uL (0-450); Eosinophils Percent Auto 1.9 % (2-4); Hematocrit 36.8 % (36-46); Hemoglobin 12.1 g/dL (12.0-16.0); Lymphocytes Absolute Auto 1800 /uL (1100-4500); Lymphocytes Percent Auto 25.6 % (25-40); Mean Corpuscular HGB Conc 32.8 % (30-36); Mean Corpuscular Hemoglobin 28.1 PG (26-34); Mean Corpuscular Volume 85.8 fL (80-100); Monocytes Absolute Auto 400 /uL (0-900); Monocytes Percent Auto 5.4 % (3-14); Neutrophils Absolute Auto 4600 /uL (1500-7000); Neutrophils Percent Auto 66.5 % (50-75); Platelet Count 324 X10^3/uL (150-400); Red Blood Cell Count 4.29 X10^6/uL (4.0-5.2); Red Cell Distribution Width 13.8 % (11.6-14.8); White Blood Cell Count 6.9 X10^3/uL (4.5-11.0)
[2024-05-22 15:27] LABS: Alanine Aminotransferase 13 IU/L (<35); Albumin 4.2 g/dL (3.5-5.0); Albumin Globulin Ratio 1.5 (1.0-2.8); Alkaline Phosphatase 55 U/L (38-126); Aspartate Aminotransferase 26 IU/L (14-36); BUN Creatinine Ratio 30.2 (6-22); Bilirubin Total 0.3 mg/dL (0.2-1.3); Blood Urea Nitrogen 26 mg/dL (7-17); Calcium 9.8 mg/dL (8.4-10.2); Carbon Dioxide 28 mmol/L (22-32); Chloride 104 mmol/L (98-107); Estimated Glomerular Filt Rate > 60 mL/min (>60); Globulin 2.8 g/dL (1.7-4.1); Glucose 109 mg/dL (80-110); HEMOLYSIS < 15 (0-50); Potassium 4.2 mmol/L (3.4-5.1); Sodium 136 mmol/L (137-145)
== END ==
LOC: LAB 14:17
PROVIDERS: PCP Internal Medicine; Referring Provider Dermatology; Visit Provider Dermatology
DX: L40.0 Psoriasis vulgaris (principal)
CPT/HCPCS: 36415; 80053; 85025; 86480; 86706; 86803; 87340; 87389

== ENCOUNTER → 2025-07-22 11:36 | Outpatient (CLI) | payer MEDICARE, BC, SELFPAY ==
[2025-07-22 12:44] LABS: Blood Urea Nitrogen 16 mg/dL (7-17); Calcium 9.7 mg/dL (8.4-10.2); Carbon Dioxide 27 mmol/L (22-32); Chloride 103 mmol/L (98-107); Cholesterol 232 mg/dL (140-199); Estimated Glomerular Filt Rate > 60 mL/min (>60); Glucose 93 mg/dL (70-99); HDL Cholesterol 95 mg/dL (40-60); HEMOLYSIS < 15 (0-50); Potassium 4.7 mmol/L (3.4-5.1); Sodium 136 mmol/L (137-145); Triglycerides 90 mg/dL (35-150)
== END ==
PROVIDERS: PCP Internal Medicine; Referring Provider Internal Medicine; Visit Provider Internal Medicine
DX: E78.2 Mixed hyperlipidemia (principal); Z86.79 Personal history of other diseases of the circulatory system
CPT/HCPCS: 36415; 80048; 80061; 84450